=== PATIENT | female | born 1980 | race African-American/Black ===

== ENCOUNTER 2022-03-09 20:04 | Emergency (ER) | payer MEDICAID ==
[~2022-03-09] VITALS: Ht 157.5 cm; Wt 117.9 kg
[2022-03-09 20:27] VITALS: BP 187/106
[2022-03-10] MEDS ORDERED: AMOX-277 PO (01:13)
[2022-03-10] MEDS ORDERED: IBUP800T27 PO (01:13)
== END 2022-03-10 01:40 | disposition home or self-care (01) ==
LOC: ER 20:04
DX: K08.89 Other specified disorders of teeth and supporting structures (principal); Z79.1 Long term (current) use of non-steroidal anti-inflammatories (NSAID); Z79.2 Long term (current) use of antibiotics; Y04.2XXA Assault by strike against or bumped into by another person, initial encounter; Y93.89 Activity, other specified; Y92.89 Other specified places as the place of occurrence of the external cause; Y99.8 Other external cause status